=== PATIENT | male | born 1950 | race Caucasian/White ===

== ENCOUNTER 2017-09-08 18:04 | Emergency (ER) | payer MEDICARE, OTHER ==
[~2017-09-08] VITALS: Ht 172.7 cm; Wt 100.0 kg
[2017-09-08 18:50] VITALS: BP 142/63; PULSE 79; RESP 18; TEMP 97.7; O2SAT 97
[2017-09-08 22:29] VITALS: BP 145/87; PULSE 79; RESP 20; O2SAT 98
--- NOTE | 2017-09-08 22:40 | PD ---
HPI Chief Complaint: Musculoskeletal Complaint Time Seen by Provider: 22:24 Travel History International Travel<30 days: No Contact w/Intl Traveler<30days: No Traveled to known affect area: No History of Present Illness HPI 66-year-old white male with a history of hypertension, hypercholesterolemia and COPD presents emergency department with complaints of left periscapular pain 4 days duration. He states that the pain is worse when he lays down at night. He states that it radiates up to the back of his neck and down his left arm. He does have some slight discomfort that goes towards the axilla. He has noted a slight rash on his mid back. He has had the shingles immunization. He had a heart catheterization approximately 5-10 years ago which she reports was negative. He also had a nuclear stress test within the past year. Patient denies any anterior chest pain. No shortness of breath. The pain is not exacerbated by taking a deep breath or exertion. No diaphoresis. No nausea or vomiting. He has used [id number] topical pain patch with slight improvement. PFSH Past Medical History Narrative Medical Kidney stones, hypertension, hypercholesterolemia, COPD Arthritis: Yes Cardiovascular Problems: Yes ("MURMUR") High Cholesterol: Yes COPD: Yes Hypertension: Yes Tetanus Vaccination: < 5 Years Past Surgical History Appendectomy: Yes Eye Surgery: Yes ("CATARACTS") Other Surgery: Yes ("HEMORROIDS") Social History Alcohol Use: Yes Tobacco Use: Yes (1/2 PPD) Substance Use: No Allergies-Medications (Allergen,Severity, Reaction): Coded Allergies: No Known Allergies (Unverified , 09/08/17) Review of Systems Except as stated in HPI: all other systems reviewed are Neg Physical Exam Narrative GENERAL: Well-developed, well-nourished in no apparent distress. Nontoxic appearing. HEAD: Normocephalic, atraumatic. EYES: Pupils equal round and reactive. Extraocular motions intact. No scleral icterus. No injection or drainage. ENT: Nose clear. Throat without erythema, tonsillar hypertrophy or exudate. Uvula midline. Airway patent. NECK: Trachea midline. Supple, nontender, moves head freely. No central bony tenderness or spasm. CARDIOVASCULAR: Regular rate and rhythm without murmurs, gallops, or rubs. RESPIRATORY: Clear to auscultation. Breath sounds equal bilaterally. No wheezes , rales, or rhonchi. CHEST: Nontender throughout without deformity or crepitance. No retractions or use of accessory muscles. There is a small area of erythema over the spinous process of approximately T2. I see no vesicles or pustules. It appears to be in the midline. I do not see it passing either left or right. There is no lesions in the axilla, arm or anterior chest. GASTROINTESTINAL: Abdomen soft, non-tender, nondistended. No hepato-splenomegaly , or palpable masses. No guarding. EXTREMITIES: No clubbing, cyanosis, or edema. No joint tenderness. BACK:without deformity. No flank tenderness. Patient has reproducible area of discomfort to the left periscapular region in an area which she has a over-the- counter pain patch. NEUROLOGICAL: Awake, alert and oriented x 3 .Cranial nerves grossly intact. Motor and sensory grossly within normal limits. Normal speech. Data Data Last Documented VS Vital Signs Date Time Temp Pulse Resp B/P (MAP) Pulse Ox O2 Delivery O2 Flow Rate FiO2 09/08/17 22:29 79 20 145/87 (106) 98 Room Air 09/08/17 18:50 97.7 Orders Orders Chest, Single Ap (09/08/17 22:31) Acetamin-Hydrocod 325-5 Mg ([place] 5-325 (09/08/17 22:45) Electrocardiogram (09/08/17 22:31) Acyclovir (Zovirax) (09/08/17 23:15) Ed Discharge Order (09/08/17 23:05) MDM Medical Decision Making Medical Screen Exam Complete: Yes Emergency Medical Condition: Yes Medical Record Reviewed: Yes Interpretation(s) EKG: Sinus rhythm with a ventricular rate of 72. Normal ME. Normal axis. Normal QT interval. No ectopy. No ST elevation. Differential Diagnosis Differential diagnosis: Acute coronary syndrome, dissection, pneumothorax, mass , shingles, musculoskeletal pain, arthritis Narrative Course We will perform an EKG, chest x-ray. Patient's symptoms sound of a myofascial nature and not acute coronary syndrome or dissection. He has a small area of erythema centrally over T2. It is not lateralizing. It does not appear to be shingles but cannot be completely excluded. Patient was given [place] 5 mg p.o. patient is also given acyclovir 800 mg p.o. Lidoderm patch. I suspect the patient's pain is more myofascial. I cannot completely exclude early shingles. This would be less likely having a vaccination but cannot completely excluded. Patient is advised to follow-up with his doctor on Sunday. He has requested only a 2 day prescription because he will get the prescriptions filled through the [facility]. This is left back pain Diagnosis Primary Impression: Back pain Patient Instructions: Narcotic given in the ED, General Instructions Additional Instructions: Rest. Medications as directed. Follow-up with your doctor at the [facility] Sunday. Return to the ER if any problems. Med/Other Pt SpecificInfo: Prescription(s) given Scripts Acyclovir (Acyclovir) 800 Mg Tab 800 MG PO 5 TIMES A DAY for Mgmt Viral Infection for 2 Days, TAB 0 Refills Prov: Issac Dobbs MD 09/08/17 Hydrocodone-Acetaminophen ([place]) 5 Mg-325 Mg Tab 1 TAB PO Q6H Y for PAIN for 2 Days, #8 TAB 0 Refills Prov: Issac Dobbs MD 09/08/17 Disposition: 01 DISCHARGE HOME Condition: Stable Alex You Sep 08, 2017 22:40
[2017-09-08] MEDS ORDERED: ACETAMINOPHEN/HYDROcodone 325 MG/5 MG TAB PO ONE (22:45)
--- NOTE | 2017-09-08 22:52 | RADRPT ---
EXAM DATE/TIME: 09/08/2017 22:40 [facility] COMPARISON: No previous studies available for comparison. INDICATIONS : Complains of left shoulder and back pain. MEDICAL HISTORY : None. SURGICAL HISTORY : None. ENCOUNTER: Initial ACUITY: 3 days PAIN SCORE: 8/10 LOCATION: Left chest and shoulder FINDINGS: A single view of the chest demonstrates the lungs to be symmetrically aerated without evidence of mas s, infiltrate or effusion. The cardiomediastinal contours are unremarkable. Osseous structures are intact. CONCLUSION: No acute disease. Jose Francisco Paez MD FACR on September 08, 2017 at 22:49 Board Certified Radiologist. This report was verified electronically.
[2017-09-08] MEDS ORDERED: NORC5TAB PO (23:08)
[2017-09-08] MEDS ORDERED: ACYC800T PO (23:08)
[2017-09-08] MEDS ORDERED: ACYCLOVIR 800 MG TAB PO ONE (23:15)
[2017-09-09] MEDS ORDERED: LIDOCAINE HCL 5% PATCH T-DERMAL ONE
[2017-09-09 00:31] VITALS: PULSE 74; RESP 18; O2SAT 97
--- NOTE | 2017-09-09 19:53 | EKG ---
Date Performed: 09/08/2017 Time Performed: 22:35:16 PTAGE: 66 years EKG: Sinus rhythm Since the previous tracing, no significant change noted NORMAL ECG PREVIOUS TRACING : 05/10/1997 @ 0513 DOCTOR: Sabrina Noe Interpretating Date/Time 09/09/2017 19:49:53
== END 2017-09-09 00:40 | disposition home or self-care (01) ==
LOC: NEPD 18:04
DX: M54.9 Dorsalgia, unspecified (principal); L53.9 Erythematous condition, unspecified; I10 Essential (primary) hypertension; E78.00 Pure hypercholesterolemia, unspecified; J44.9 Chronic obstructive pulmonary disease, unspecified; F17.210 Nicotine dependence, cigarettes, uncomplicated; Z87.442 Personal history of urinary calculi
CPT/HCPCS: 71045; 93005